=== PATIENT | male | born 1955 | race Caucasian/White ===

== ENCOUNTER 2017-02-23 12:56 | Emergency (ER) | payer OTHER ==
[~2017-02-23] VITALS: Wt 64.0 kg
[~2017-02-23 12:56] MED LIST: ALLO300T2 PO; PANT40TA4 PO; PRED50TA PO; PROC10TA10 PO; TERA1CAP36 PO; ZOF8 PO
[2017-02-23] MEDS ORDERED: ADENOSINE 3 MG/ML SYRINGE IV ONE (13:30)
[2017-02-23] MEDS ORDERED: ACYC800T57 PO (14:03)
[2017-02-23] MEDS ORDERED: GABA300C16 PO (14:03)
--- NOTE | 2017-02-23 14:07 | ERD ---
ER Documentation Chief Complaint Date/Time DATE: 02/23/17 TIME: 14:04 Chief Complaint SHINGLES RASH TO RIGHT SIDE OF BACK AND RIGHT RIB. CHEMO PT. HPI 61-year-old male presents to the emergency department with an atraumatic painful rash to the right upper part of his back. Patient has had this for 3 days now. He reports no fevers or chills. ROS All systems reviewed and are negative except as per history of present illness. Medications Home Meds Active Scripts Gabapentin* (Gabapentin*) 300 Mg Capsule, 300 MG PO BID, #60 CAP Prov:ANNE-MARIE AVALOS 02/23/17 Acyclovir* (Zovirax*) 800 Mg Tablet, 800 MG PO 5 TIMES DAILY for 7 Days, TAB Prov:ANNE-MARIE AVALOS 02/23/17 Reported Medications Ondansetron Hcl* (Zofran*) 8 Mg Tab, 8 MG PO Q8 Y for NAUSEA, TAB 11/16/14 Pantoprazole* (Pantoprazole*) 40 Mg Tablet.dr, 40 MG PO DAILY, TAB 11/16/14 Allopurinol* (Allopurinol*) 300 Mg Tablet, 300 MG PO DAILY, TAB 11/16/14 Prochlorperazine* (Prochlorperazine*) 10 Mg Tablet, 10 MG PO Q6H Y for NAUSEA, TAB 11/16/14 Prednisone* (Prednisone*) 50 Mg Tablet, 50 MG PO QAM for 5 DAYS AFTER CHEMO, TAB 11/16/14 Terazosin Hcl* (Terazosin Hcl*) 1 Mg Capsule, 1 MG PO HS, CAP 10/26/14 Allergies Allergies: Coded Allergies: No Known Allergies (Verified Allergy, Mild, 10/09/14) PMhx/Soc History of Surgery: Yes (cholecystectomy, ) Anesthesia Reaction: No Hx Neurological Disorder: No Hx Respiratory Disorders: No Hx Cardiac Disorders: No Hx Psychiatric Problems: No Hx Miscellaneous Medical Probl: No (TUMOR LTGROIN [id number]) Hx Alcohol Use: No Hx Substance Use: No Hx Tobacco Use: No FmHx Noncontributory for chief complaint Physical Exam Vitals Vital Signs Date Time Temp Pulse Resp B/P Pulse Ox O2 Delivery O2 Flow Rate FiO2 02/23/17 13:06 100.0 115 20 139/89 98 Physical Exam General: Well-developed well-nourished no distress Skin: Patient is a varicella rash on the upper right chest wall. No cellulitic changes. Results 24 hrs Current Medications Medications (Trade) Dose Ordered Sig/Ruddy Route PRN Reason Start Time Stop Time Status Last Admin Dose Admin Adenosine 6 mg ONCE ONCE IV 02/23/17 13:30 02/23/17 13:31 DC Procedures/MDM Patient was taken to a room, seen and examined Medical decision making: This is a 61-year-old male on prednisone with underlying comorbid conditions presents with an isolated shingles. This time, patient does not seem to have disseminated shingles and has no signs of sepsis or dehydration. He appears to be clinically well for appropriate outpatient care. Departure Diagnosis: Primary Impression: Shingles Condition: Stable Patient Instructions: Shingles (Herpes Zoster) Additional Instructions: See your doctor for follow-up as discussed. Take a copy of your test results, if appropriate, to this follow-up visit. See your doctor or return here if your symptoms do not improve as expected. At any time, please return to the emergency department for any change or worsening in her symptoms. ANNE-MARIE AVALOS February 23, 2017 14:07
[2017-02-23 14:10] VITALS: BP 143/105; PULSE 108; RESP 16
--- NOTE | 2017-02-23 14:10 | RADRPT ---
PROCEDURE: XR Chest. CLINICAL INDICATION: Chest pain TECHNIQUE: Anterior chest x-ray. COMPARISON: 11/16/2014 FINDINGS: Right-sided Port-A-Cath catheter terminates in superior vena cava 2 cm above the cavoatrial junction . 7 mm calcified nodule in the left lung base is unchanged. The lungs are otherwise clear. No pleural effusion identified. There is no evidence of pneumothorax. The cardiomediastinal silhouette is unremarkable. The soft tissues are normal. Osseous structures are unremarkable. IMPRESSION: 1. No acute disease is seen in the chest. 2. Interval placement of right-sided Port-A-Cath catheter with satisfactory position. 3. 7 mm calcified nodule in the left lung base suggesting old granulomatous disease. RPTAT: QQ .Jesús Fernandes MD, Date Time Electronically viewed and signed by .Jesús Fernandes MD, on 02/23/2017 14:10 .M/
== END 2017-02-23 14:22 | disposition home or self-care (01) ==
LOC: E/R 12:56
DX: B02.9 Zoster without complications (principal); R07.9 Chest pain, unspecified; R40.2142 Coma scale, eyes open, spontaneous, at arrival to emergency department; R40.2252 Coma scale, best verbal response, oriented, at arrival to emergency department; R40.2362 Coma scale, best motor response, obeys commands, at arrival to emergency department
CPT/HCPCS: 71010